=== PATIENT | female | born 1950 | race Hispanic/Latino ===

== ENCOUNTER 2020-03-31 15:44 | Outpatient (CLI) | payer OTHER, SELFPAY ==
[2020-03-31 16:05] LABS: Basophils Absolute Auto 0.1 K/mm3 (0.0-0.1); Basophils Percent Auto 1.2 % (0.2-1.2); Eosinophils Absolute Auto 0.2 K/mm3 (0-0.3); Eosinophils Percent Auto 3.8 % (0-4.4); Hematocrit 41.8 % (37.0-47.0); Hemoglobin 13.6 g/dL (12.0-15.0); Immature Granulocyte Absolute 0.02 K/mm3 (0.00-0.031); Immature Granulocyte Percent A 0.3 % (0-0.5); Lymphocytes Absolute Auto 1.56 K/mm3 (0.9-3.2); Lymphocytes Percent Auto 26.7 % (18.3-44.2); Mean Corpuscular HGB Conc 32.5 g/dl (32-36); Mean Corpuscular Hemoglobin 28.7 pg (26-34); Mean Corpuscular Volume 88.2 fl (80-100); Mean Platelet Volume 9.8 fl (7.4-10.4); Monocytes Absolute Auto 0.6 K/mm3 (0.1-0.6); Monocytes Percent Auto 9.4 % (2.6-8.5); Neutrophils Absolute Auto 3.4 K/mm3 (1.3-6.7); Neutrophils Percent Auto 58.6 % (45.5-73.1); Platelet Count Result 267 k/mm3 (150-375); Red Blood Count 4.74 M/mm3 (4.2-5.4); Red Cell Distribution Width 13.7 % (11.5-14.5); White Blood Count 5.9 K/mm3 (4.5-10.0)
[2020-03-31 16:17] LABS: Alanine Aminotransferase 33 U/L (4-35); Albumin Level 4.7 g/dL (3.5-5.1); Alkaline Phosphatase 68 U/L (38-126); Aspartate Amino Transferase 33 U/L (14-36); Bilirubin,Total 0.2 mg/dL (0.2-1.3); Blood Urea Nitrogen 20 mg/dL (7-17); Calcium 9.6 mg/dL (8.4-10.2); Carbon Dioxide 25 mmol/L (22-30); Chloride 100 mmol/L (98-107); Estimated Glomerular Filt Rate > 60; Glucose 95 mg/dL (65-105); Potassium 4.3 mmol/L (3.4-5.0); Sodium 135 mmol/L (137-145)
== END 2020-03-31 15:45 | disposition home or self-care (01) ==
PROVIDERS: PCP Family Medicine; Visit Provider Physician Assistant
DX: K92.1 Melena (principal); R10.9 Unspecified abdominal pain
CPT/HCPCS: 36415; 80053; 85025

== ENCOUNTER 2020-04-09 10:14 | Outpatient (CLI) | payer OTHER, SELFPAY ==
--- NOTE | ~2020-04-09 | MM_ITS ---
EXAMINATION: MM screening [facility] BI w mariann HISTORY: Screening mammogram TECHNIQUE: Craniocaudal and mediolateral oblique 3-D tomosynthesis images were obtained and synthetic 2-D images were generated. CAD analysis was submitted and interpreted. COMPARISON: 08/11/2019 diagnostic right digital mammogram and limited right breast ultrasound 03/14/2019 postbiopsy diagnostic right mammogram 02/04/2019 diagnostic right digital mammogram and limited right breast ultrasound 01/16/2019 bilateral digital screening mammogram BREAST PARENCHYMAL COMPOSITION: There are scattered areas of fibroglandular density. FINDINGS: 2 biopsy markers are noted on the right. History of prior benign right breast biopsy. Bilat eral occasional benign calcifications. Stable mild fibroglandular asymmetry. There is no evidence of suspicious mass, calcification, or architectural distortion to suggest malignancy in either breast. T here has been no suspicious interval change. IMPRESSION: 1. No mammographic evidence of malignancy. 2. Recommend routine screening mammography in one year. BI-RADS Category 2: Benign finding(s). Reviewed, dictated and finalized at location A.
== END 2020-04-09 10:15 | disposition home or self-care (01) ==
PROVIDERS: PCP Family Medicine; Visit Provider Family Medicine
DX: Z12.31 Encounter for screening mammogram for malignant neoplasm of breast (principal)
CPT/HCPCS: 77063; 77067

== ENCOUNTER 2021-03-09 15:16 | Outpatient (CLI) | payer OTHER, SELFPAY ==
--- NOTE | ~2021-03-09 | US_ITS ---
US pelvic complete w TV DATE: 03/09/2021 15:55 INDICATION: Right lower quadrant, pelvic pain TECHNIQUE: Real-time imaging via transabdominal and transvaginal approaches COMPARISON: None FINDINGS: The uterus measures 6.4 centers height, 2.2 cm anteroposterior and 3.6 cm transverse dimens ion. There is a calcified fibroid of the uterine fundus. Central endometrial echo measures 3 mm AP di mension, normal. Left ovary is not visualized. Right ovary 2.2 x 1.9 x 3.3 cm. Approximately 2.2 cm right ovarian cyst. IMPRESSION: 2.2 cm right ovarian cyst Reviewed, dictated and finalized at Location A. Reviewed, dictated and finalized at location A. IMPRESSION: 2.2 cm right ovarian cyst
== END 2021-03-09 15:17 | disposition home or self-care (01) ==
PROVIDERS: PCP Family Medicine; Visit Provider Family Medicine
DX: N83.201 Unspecified ovarian cyst, right side (principal); R10.31 Right lower quadrant pain
CPT/HCPCS: 76830; 76856

== ENCOUNTER → 2021-04-08 02:36 | Outpatient (CLI) | payer OTHER, SELFPAY ==
[2021-04-08 19:37] LABS: SARS-CoV-2 RNA PCR Negative
== END ==
PROVIDERS: PCP Family Medicine; Visit Provider Internal Medicine Gastroenterology
DX: Z20.822 Contact with and (suspected) exposure to COVID-19 (principal)
CPT/HCPCS: C9803; U0003; U0005

== ENCOUNTER 2021-04-11 02:05 | Day surgery (SDC) | payer OTHER, SELFPAY ==
[2021-01-28 13:27] VITALS: BMI 24.6
[2021-03-30 10:21] VITALS: BMI 24.6
[2021-04-11 06:57] VITALS: BP 162/92; PULSE 62; RESP 18; TEMP 36.2; O2SAT 99; BMI 24.7
[2021-04-11] MEDS: LACTATED RINGERS 1,000 ML 150 ML IV CONT (07:09)
--- NOTE | 2021-04-11 07:30 | WPDANESEPPF ---
Anes - Initial Pre Proc Eval Procedure: Operation Date: 04/11/21 08:00 Proposed Procedures p Esophagogastroduodenoscopy - Yohan Morocho MD Date/Time: 04/11/21 07:30 Surgeon: Yohan Morocho MD Pre Op Diagnosis: GERD Patient Data Age: 71 Gender: F Height: 4 ft 11 in Weight: 55.6 kg Last Vital Signs Temp 97.1 F L 04/11/21 06:57 Pulse 62 04/11/21 06:57 Resp 18 04/11/21 06:57 BP 162/92 H 04/11/21 06:57 Pulse Ox 99 04/11/21 06:57 Allergies Allergy/AdvReac Type Severity Reaction Status Date / Time amlodipine AdvReac Mild Swelling Verified 04/11/21 06:55 enalapril AdvReac Mild Cough Verified 04/11/21 06:55 Home Medications Medication Instructions Recorded Confirmed Type blood sugar diagnostic #50 each 10/28/19 04/11/21 Rx lancets #50 each 10/28/19 04/11/21 Rx doxycycline hyclate 20 mg tablet 20 mg PO Q12H 08/13/20 04/11/21 History levothyroxine 100 mcg tablet See Rx Instructions .ROUTE 12/20/20 04/11/21 Rx .COMPLEX #30 tablet metronidazole 0.75 % topical cream 1 applic TOPICAL QHS #45 g 02/03/21 04/11/21 Rx valsartan 40 mg tablet 40 mg PO DAILY #30 tablet 03/04/21 04/11/21 Rx latanoprost 1 drp EACH EYE HS 03/30/21 04/11/21 History Patient hx anesthesia problems: none Family hx anesthesia problems: none PMFSH Past Medical History Medical History (Updated 04/11/21 @ 07:25 by Nick Heller MD) Acquired hypothyroidism Essential (primary) hypertension Gastroesophageal reflux disease Surgical History Surgical History (Updated 08/13/20 @ 15:10 by Yohan Morocho MD) History of cholecystectomy Family History Family History Sibling Family history of malignant neoplasm of stomach Social History Social History (Updated 03/02/21 @ 14:57 by Lisbet Valentine MA) Smoking status: Never smoker Tobacco type: cigarettes Second hand tobacco smoke exposure: No Smoking end date: 11/26/83 Alcohol intake: never Substance use: never Substance use type: does not use Living arrangements: with family Gender identity (if verbalized by the patient): Female Spiritual care concerns: No Anes - Eval Final PreProcedure Day of Procedure 04/11/21 07:30 Patient weight: normal Heart: regular rate and rhythm Lungs: clear to auscultation Airway: Mallampati scale class II Neurological: alert and oriented Last oral intake: >/= 8 hours ASA classification: II Emergent: no Anesthetic plan: proceed Anesthesia type and monitoring: general GIVS and standard monitoring Informed Consent: The patient's anesthetic plan and its attendant risks and benefits were discussed with the patient/family/POA. Questions were solicited and answers provided to the satisfaction of the patient/family/POA.
--- NOTE | 2021-04-11 08:02 | PM.HPGS ---
History of Present Illness History of Present Illness Consent: Risks, benefits, and alternatives have been discussed and questions answered. Patient agrees to proceed with procedure. Chief complaint: GERD Narrative: Geneva Vega is a 71 year old female with intermittent reflux, not taking ppi anymore Review of Systems Constitutional: Constitutional: Denies headache(s) and Denies weakness Eyes: Eyes: Denies blurry vision ENT: Reports Normal hearing present, Denies headache(s) and Denies neck pain Cardiovascular: Cardiovascular: Denies chest pain and Denies dyspnea Respiratory: Respiratory: Denies dyspnea Gastrointestinal: Gastrointestinal: Reports no additional gastrointestinal complaints Genitourinary: Genitourinary: Denies dysuria Musculoskeletal: Musculoskeletal: Denies neck pain Integumentary/Breasts: Skin/Breast: Denies dry skin Neurologic: Reports Normal hearing present, Denies headache(s) and Denies weakness Psychiatric: Psychiatric: Denies anxiety Endocrine: Endocrine: Denies change in body appearance Hematologic/Lymphatic: Hematologic/Lymphatic: Denies easy bleeding Allergic/Immunologic: Allergic/Immunologic: Denies urticaria PMFSH Past Medical History Medical History (Updated 04/11/21 @ 07:25 by Nick Heller MD) Acquired hypothyroidism Essential (primary) hypertension Gastroesophageal reflux disease Surgical History Surgical History (Updated 08/13/20 @ 15:10 by Yohan Morocho MD) History of cholecystectomy Family History Family History Sibling Family history of malignant neoplasm of stomach Social History Social History (Updated 03/02/21 @ 14:57 by Lisbet Valentine MA) Smoking status: Never smoker Tobacco type: cigarettes Second hand tobacco smoke exposure: No Smoking end date: 11/26/83 Alcohol intake: never Substance use: never Substance use type: does not use Living arrangements: with family Gender identity (if verbalized by the patient): Female Spiritual care concerns: No Meds Home Medications and Allergies Home Medications Medication Instructions Recorded Confirmed Type blood sugar diagnostic #50 each 10/28/19 04/11/21 Rx lancets #50 each 10/28/19 04/11/21 Rx doxycycline hyclate 20 mg tablet 20 mg PO Q12H 08/13/20 04/11/21 History levothyroxine 100 mcg tablet See Rx Instructions .ROUTE 12/20/20 04/11/21 Rx .COMPLEX #30 tablet metronidazole 0.75 % topical cream 1 applic TOPICAL QHS #45 g 02/03/21 04/11/21 Rx valsartan 40 mg tablet 40 mg PO DAILY #30 tablet 03/04/21 04/11/21 Rx latanoprost 1 drp EACH EYE HS 03/30/21 04/11/21 History Allergies Allergy/AdvReac Type Severity Reaction Status Date / Time amlodipine AdvReac Mild Swelling Verified 04/11/21 06:55 enalapril AdvReac Mild Cough Verified 04/11/21 06:55 Vital Signs Vital Signs - 24 hr 04/11/21 06:57 Temperature 97.1 F L Pulse Rate 62 Respiratory Rate 18 Blood Pressure 162/92 H Pulse Oximetry 99 Exam Const: General: comfortable and no acute distress HENMT: General nose exam: Normal nares present Eyes: General: appearance normal, both eyes and all related structures Neck: Neck: no JVD Resp: Auscultation: clear to auscultation bilaterally Cardio: Rate: regular rate Rhythm: regular rhythm GI: Inspection: non-distended GI Palp: Yes Soft to palpation Skin: General skin exam: normal color Neuro: General: gait normal Speech: normal speech Extrem: General: normal to inspection Psych: Mental Status: mental status grossly normal Assessment and Plan Assessment and plan (1) Gastroesophageal reflux disease: Code(s): K21.9 - Gastro-esophageal reflux disease without esophagitis Status: Acute Assessment and Plan: egd with bx
[2021-04-11 08:19] VITALS: BP 116/60; PULSE 58; RESP 18; O2SAT 98
[2021-04-11 08:29] VITALS: BP 123/69; PULSE 62; RESP 18; O2SAT 98
[2021-04-11 08:39] VITALS: BP 121/69; PULSE 63; RESP 18; O2SAT 98
== END 2021-04-11 09:06 | disposition home or self-care (01) ==
PROVIDERS: PCP Family Medicine; Visit Provider Internal Medicine Gastroenterology
PROC: 0DJ08ZZ Inspection of Upper Intestinal Tract, Via Natural or Artificial Opening Endoscopic (ICD-10-PCS; CPT 43235; principal; 2021-04-11 08:00)
DX: K21.00 Gastro-esophageal reflux disease with esophagitis, without bleeding (principal); K44.9 Diaphragmatic hernia without obstruction or gangrene; K29.70 Gastritis, unspecified, without bleeding; E03.9 Hypothyroidism, unspecified; I10 Essential (primary) hypertension; Z87.891 Personal history of nicotine dependence
CPT/HCPCS: 43239; 88305; J2704; J7120

== ENCOUNTER 2021-04-14 15:26 | Outpatient (CLI) | payer OTHER, SELFPAY ==
--- NOTE | ~2021-04-14 | MM_ITS ---
EXAMINATION: MM screening [facility] BI w mariann HISTORY: Screening TECHNIQUE: Craniocaudal and mediolateral oblique 3-D tomosynthesis images were obtained and synthetic 2-D images were generated. CAD analysis was submitted and interpreted. COMPARISON: Comparison to multiple prior studies sequentially, with oldest reviewed study dated 01/16. BREAST PARENCHYMAL COMPOSITION: There are scattered areas of fibroglandular density. FINDINGS: There is no evidence of suspicious mass, calcification, or architectural distortion to sugg est malignancy in either breast. There has been no suspicious interval change. IMPRESSION: 1. No mammographic evidence of malignancy. 2. Recommend routine screening mammography in one year. BI-RADS Category 1: Negative Reviewed, dictated and finalized at location A.
== END 2021-04-14 15:27 | disposition home or self-care (01) ==
PROVIDERS: PCP Family Medicine; Visit Provider Family Medicine
DX: Z12.31 Encounter for screening mammogram for malignant neoplasm of breast (principal)
CPT/HCPCS: 77063; 77067

== ENCOUNTER 2022-02-28 15:57 | Outpatient (CLI) | payer OTHER, SELFPAY ==
--- NOTE | ~2022-02-28 | XR_ITS ---
EXAMINATION: XR chest 2V EXAM DATE: 02/28/2022 16:28 INDICATION: R07.9 - Chest pain, unspecified TECHNIQUE: Frontal and lateral projections of the chest obtained and reviewed. There is no prior cassius dy for comparison. FINDINGS: The lungs are clear. There are no pleural effusions. The cardiomediastinal silhouette is within normal limits. There is no pneumothorax suspected. There are bony degenerative changes. Mode rate lumbar scoliosis. There are cholecystectomy clips. IMPRESSION: No acute cardiopulmonary findings. Reviewed, dictated and finalized at location A.
--- NOTE | ~2022-02-28 | XR_ITS ---
EXAMINATION: XR knee LT 2V DATE: 02/28/2022 16:28 INDICATION: Left knee pain. TECHNIQUE: 2 views of left knee standing were obtained. COMPARISON: None. FINDINGS: Bone alignment is normal. No fracture. There is severe osteoarthritis of medial compartment and mild osteoarthritis of lateral and patellofemoral compartments. No knee joint effusion. IMPRESSION: 1. Severe left knee osteoarthritis. Reviewed, dictated and finalized at location A.
== END 2022-02-28 15:58 | disposition home or self-care (01) ==
LOC: ANHIMG 16:01
PROVIDERS: PCP Family Medicine; Visit Provider Family Medicine
DX: R07.9 Chest pain, unspecified (principal); M25.562 Pain in left knee; M17.12 Unilateral primary osteoarthritis, left knee
CPT/HCPCS: 71046; 73560

== ENCOUNTER 2022-04-27 09:30 | Outpatient (CLI) | payer OTHER, SELFPAY ==
--- NOTE | ~2022-04-27 | MM_ITS ---
EXAMINATION: MM screening [facility] BI w mariann HISTORY: Screening mammogram TECHNIQUE: Craniocaudal and mediolateral oblique 3-D tomosynthesis images were obtained and synthetic 2-D images were generated. CAD analysis was submitted and interpreted. COMPARISON: No prior mammogram is available for comparison at this institution. BREAST PARENCHYMAL COMPOSITION: There are scattered areas of fibroglandular density. FINDINGS: There are 2 biopsy markers on the right; history of 2 prior benign right breast biopsies. There is stable mild fibroglandular asymmetry. Occasional bilateral benign calcifications. There is n o evidence of suspicious mass, calcification, or architectural distortion to suggest malignancy in ei ther breast. There has been no suspicious interval change. IMPRESSION: 1. No mammographic evidence of malignancy. 2. Recommend routine screening mammography in one year. BI-RADS Category 2: Benign finding(s). Reviewed, dictated and finalized at location A.
== END 2022-04-27 09:31 | disposition home or self-care (01) ==
LOC: ANHIMG 09:31
PROVIDERS: PCP Family Medicine; Visit Provider Family Medicine
DX: Z12.31 Encounter for screening mammogram for malignant neoplasm of breast (principal)
CPT/HCPCS: 77063; 77067

== ENCOUNTER 2022-10-26 14:00 | Outpatient (CLI) | payer OTHER, SELFPAY ==
--- NOTE | ~2022-10-26 | XR_ITS ---
XR hand BI arthritis min 3V 10/26/2022 14:27 Indication: Arthritis Procedure: 4 views of each hand Comparison: No prior studies for comparison. Findings: Right: There is moderate osteoarthritis of the first MCP joint. There is moderate osteoarthritis of t he first interphalangeal, second, third and fourth distal interphalangeal and second and third proxim al interphalangeal joints. There is mild osteoarthritis of the fifth interphalangeal joints. No erosi ve changes. No acute fracture or traumatic malalignment. There is osteoarthritis of the triscaphe nazia nt. Left: There is mild-moderate polyarticular osteoarthritis involving the interphalangeal joints. There is an exophytic expansile circumscribed mixed lytic and sclerotic lesion of the fifth metacarpal nec k. Impression: 1: Moderate bilateral polyarticular osteoarthritis. 2: Exophytic expansile circumscribed mixed lytic and sclerotic lesion of the fifth metacarpal neck, of uncertain clinical significance. Recommend comparison to any previous outside examinations if avai lable.. Reviewed, dictated and finalized at location A. [employer] DIRECT[employer] Impression: 1: Moderate bilateral polyarticular osteoarthritis. 2: Exophytic expansile circumscribed mixed lytic and sclerotic lesion of the f ifth metacarpal neck, of uncertain clinical significance. Recommend comparison to any previous outside examinations if available..
== END 2022-10-26 14:01 | disposition home or self-care (01) ==
PROVIDERS: PCP Family Medicine; Visit Provider Family Medicine
DX: M79.642 Pain in left hand (principal); M79.641 Pain in right hand; M19.042 Primary osteoarthritis, left hand; M19.041 Primary osteoarthritis, right hand; M89.9 Disorder of bone, unspecified
CPT/HCPCS: 73130

== ENCOUNTER 2022-11-10 16:05 | Outpatient (CLI) | payer OTHER, MEDICARE, SELFPAY ==
--- NOTE | ~2022-11-10 | CT_ITS ---
EXAMINATION: CT hand LT wo con DATE: 11/10/2022 16:28 INDICATION: Exophytic and sclerotic lesion of the left fifth metacarpal TECHNIQUE: High resolution computed tomography (CT) of the left hand was performed without intravenou s contrast. Additional sagittal and coronal reconstructions were performed. Automated exposure contro l and iterative reconstruction technique were employed. The dose-length product was 450.96 mGy-cm. COMPARISON: None FINDINGS: Bone alignment is normal. No fracture. There is severe erosive osteoarthritis with central gullwing e rosions at the base of the distal phalanges at the second, third and fifth distal interphalangeal nazia nts. Moderate osteoarthritis at the remaining interphalangeal joints and at the second and third meta carpophalangeal joints where there are mild subarticular cystic changes. Severe osteoarthritis at the triscaphe and first carpal metacarpal joints. There is a dumbbell shaped mixed lytic and sclerotic lesion at the radial side of the of the distal n tess of the fifth metacarpal . Is comprised of approximately 6 mm diameter intraosseous and extraosseo us components, both with internal ring and arc-like calcification consistent with chondroid matrix. T here is a peripheral corticated margin to the extraosseous component which appears diminutive with th e interosseous component 3 small region of medullary continuity. The medullary continuity an intraoss eous component would argue against a Ce's lesion/bizarre parosteal proliferation (BPOP). The intero sseous component would argue against an osteochondroma. Peripheral cortication and absence of aggress jimy appearing osteolysis, periosteal reaction or soft tissue mass would argue against a malignant les ion. Appearance would be most consistent with enchondroma protuberans. IMPRESSION: 1. Mixed lytic and sclerotic lesion originating at the neck of the fifth metacarpal with both intrame dullary and extra osseous components and suggestion of internal chondroid matrix most consistent with enchondroma protuberans. 2. Severe polyarticular osteoarthritis with erosive component at a few of the distal interphalangeal joints. Reviewed, dictated and finalized at location A. STITCHER IMPRESSION: 1. Mixed lytic and sclerotic lesion originating at the neck of the fifth metaca rpal with both intramedullary and extra osseous components and suggestion of in ternal chondroid matrix most consistent with enchondroma protuberans. 2. Severe polyarticular osteoarthritis with erosive component at a few of the d istal interphalangeal joints.
== END 2022-11-10 16:06 | disposition home or self-care (01) ==
PROVIDERS: PCP Family Medicine; Visit Provider Physician Assistant
DX: R93.6 Abnormal findings on diagnostic imaging of limbs (principal); M89.9 Disorder of bone, unspecified; M19.042 Primary osteoarthritis, left hand
CPT/HCPCS: 73200

== ENCOUNTER 2023-03-02 11:23 | Outpatient (CLI) | payer MEDICARE, MEDICAID, SELFPAY ==
--- NOTE | ~2023-03-02 | MMUS_ITS ---
EXAMINATION: MM diagnostic [facility] BI w mariann, US breast BI complete HISTORY: Bilateral breast pain TECHNIQUE: Additional 3-D tomosynthesis images of the breasts were performed and synthetic 2-D images were generated. CAD analysis was submitted and interpreted. High resolution complete bilateral breas t ultrasound was performed. COMPARISON: Comparison to multiple prior studies sequentially, with oldest reviewed study dated 04/09. BREAST PARENCHYMAL COMPOSITION: Breast composed of scattered areas of fibroglandular density FINDINGS: MAMMOGRAPHIC FINDINGS: The breasts are stable. No suspicious masses, calcifications or architectural distortion in either br east to suggest malignancy. ULTRASOUND: Complete bilateral US of all 4 quadrants of the breasts and retroareolar region was reviewed. Normal heterogeneous echotexture without focal solid or cystic mass in either breast. IMPRESSION: 1. No evidence for malignancy in either breast. 2. Routine yearly screening mammogram and regular clinical breast examination are recommended. BI-RADS CATEGORY 1 - NEGATIVE Reviewed, dictated and finalized at location A. IMPRESSION: 1. No evidence for malignancy in either breast. 2. Routine yearly screening mammogram and regular clinical breast examination a re recommended. BI-RADS CATEGORY 1 - NEGATIVE
== END 2023-03-02 11:24 | disposition home or self-care (01) ==
LOC: ANHIMG 11:25
PROVIDERS: PCP Family Medicine; Visit Provider Family Medicine
DX: N64.4 Mastodynia (principal)
CPT/HCPCS: 76641; 77062; 77066; G0279

== ENCOUNTER 2023-09-04 10:27 | Outpatient (CLI) | payer MEDICARE, SELFPAY ==
--- NOTE | ~2023-09-04 | XR_ITS ---
AP view of the pelvis and AP and lateral views of the right hip Clinical history: Pain Findings: No acute fracture or dislocation is seen. Scoliotic change of the lumbar spine is partially imaged. Bilateral hip joints are intact. There is probable degenerative change of the left SI joint. Calcified fibroids are present. Impression: Unremarkable hip joints. Left SI joint degenerative change. Calcified fibroids. Reviewed, dictated and finalized at location . Impression: Unremarkable hip joints. Left SI joint degenerative change. Calcified fibroids.
== END 2023-09-04 10:28 | disposition home or self-care (01) ==
PROVIDERS: PCP Family Medicine; Visit Provider Family Medicine
DX: M25.551 Pain in right hip (principal); D25.9 Leiomyoma of uterus, unspecified; M53.3 Sacrococcygeal disorders, not elsewhere classified
CPT/HCPCS: 73502

== ENCOUNTER 2024-04-23 12:32 | Outpatient (CLI) | payer MEDICARE, MEDICAID, SELFPAY ==
--- NOTE | ~2024-04-23 | MM_ITS ---
EXAMINATION: MM diagnostic [facility] BI w mariann HISTORY: Breast pain TECHNIQUE: Additional 3-D tomosynthesis images of the breasts were performed and synthetic 2-D images were generated. CAD analysis was submitted and interpreted. COMPARISON: Comparison to multiple prior studies sequentially, with oldest reviewed study dated 07/2019. BREAST PARENCHYMAL COMPOSITION: Not dense: There are scattered areas of fibroglandular density. FINDINGS: The breasts are stable. No suspicious masses, calcifications or architectural distortion in either breast to suggest malignancy. IMPRESSION: 1. No mammographic evidence for malignancy in either breast. 2. Routine yearly screening mammogram and regular clinical breast examination are recommended. BI-RADS Category 1: Negative Reviewed, dictated and finalized at location B. IMPRESSION: 1. No mammographic evidence for malignancy in either breast. 2. Routine yearly screening mammogram and regular clinical breast examination a re recommended. BI-RADS Category 1: Negative
== END 2024-04-23 12:33 | disposition home or self-care (01) ==
LOC: ANHIMG 12:35
PROVIDERS: PCP Family Medicine; Visit Provider Physician Assistant Medical
DX: N64.4 Mastodynia (principal)
CPT/HCPCS: 77062; 77066; G0279

== ENCOUNTER 2024-09-12 13:25 | Outpatient (CLI) | payer MEDICARE, MEDICAID, SELFPAY ==
--- NOTE | ~2024-09-12 | CT_ITS ---
EXAMINATION: CT abdomen pelvis wo con DATE: 09/12/2024 13:42 INDICATION: Abdomen pain TECHNIQUE: Computed tomography (CT) of the abdomen and pelvis was performed without intravenous contr ast. The dose-length product was 265.88 mGy-cm. Automated exposure control and iterative reconstructi on technique were employed. COMPARISON: None. FINDINGS: Lung bases are unremarkable. Heart size normal. No significant pleural or pericardial effus ion. Status post cholecystectomy. The liver, spleen, pancreas, adrenal glands and left kidney are unr emarkable. There is a small exophytic right renal mass measuring 12 mm, consistent with a cyst. Statu s post cholecystectomy. The liver, spleen, pancreas, adrenal glands and left kidney are unremarkable. Bowel gas pattern nonobstructive. Colonic diverticulosis without evidence for diverticulitis. There are coarse calcifications in the pelvis, likely a uterine fibroid changes. There is atherosclerosis o f the aorta without aneurysm. Severe lower thoracic and lumbar spondylosis with scoliosis. IMPRESSION: 1. No acute abdominal abnormality. Reviewed, dictated and finalized at location B.
== END 2024-09-12 13:26 | disposition home or self-care (01) ==
LOC: ANHIMG 13:27
PROVIDERS: PCP Family Medicine; Visit Provider Family Medicine
DX: R10.9 Unspecified abdominal pain (principal)
CPT/HCPCS: 74176

== ENCOUNTER 2024-10-27 00:13 | Day surgery (SDC) | payer MEDICARE, MEDICAID, SELFPAY ==
[2024-10-07 10:35] VITALS: BMI 24.0
[2024-10-27 08:32] VITALS: BP 136/76; PULSE 67; RESP 18; TEMP 36.3; O2SAT 100
--- NOTE | 2024-10-27 08:41 | WPDANESEPPF ---
Anes - Initial Pre Proc Eval Procedure: Operation Date: 10/27/24 10:00 Proposed Procedures p Esophagogastroduodenoscopy - Santiago Correa MD Date/Time: 10/27/24 08:41 Surgeon: Santiago Correa MD Pre Op Diagnosis: GERD Patient Data Age: 74 Gender: F Height: 1.5 m Weight: 52.1 kg Last Vital Signs Temp 36.3 C L 10/27/24 08:32 Pulse 67 10/27/24 08:32 Resp 18 10/27/24 08:32 BP 136/76 10/27/24 08:32 Pulse Ox 100 10/27/24 08:32 O2 Del Method Room Air 10/27/24 08:32 Allergies Allergy/AdvReac Type Severity Reaction Status Date / Time enalapril AdvReac Mild Cough Verified 10/27/24 08:29 Home Medications Medication Instructions Recorded Confirmed Type blood sugar diagnostic (OneTouch #50 ea 10/28/19 10/07/24 Rx Ultra Blue Test Strip) lancets (Lancets,Ultra Thin) #50 ea 10/28/19 10/07/24 Rx latanoprost 0.005 % eye drops 1 drp EACH EYE HS 03/30/21 10/07/24 History diclofenac sodium 1 % topical gel 4 g topical QID PRN pain (scale 03/20/22 10/07/24 Rx score 7-10) #100 grams levothyroxine 100 mcg tablet See Rx Instructions .Route 05/19/24 10/07/24 Rx .COMPLEX #30 tabs losartan 100 1 tablet PO DAILY #90 tabs 06/23/24 10/07/24 Rx mg-hydrochlorothiazide 12.5 mg tablet amlodipine 5 mg tablet 5 mg PO DAILY 10/07/24 10/07/24 History famotidine 40 mg tablet (Pepcid) 40 mg PO DAILY 10/07/24 10/07/24 History magnesium 400 mg PO DAILY 10/27/24 10/27/24 History Patient hx anesthesia problems: none Family hx anesthesia problems: none Results Review: All pre-operative results and documents have been reviewed as part of the pre-operative evaluation. [facility] Past Medical History Medical History Acquired hypothyroidism Essential (primary) hypertension Gastroesophageal reflux disease Hearing loss Hypertension IFG (impaired fasting glucose) Insomnia Left knee DJD Right knee DJD Surgical History Surgical History History of cholecystectomy Family History Family History Sibling Family history of malignant neoplasm of stomach Social History Social History Smoking status: Former smoker Tobacco type: cigarettes Second hand tobacco smoke exposure: No Smoking end date: 11/26/83 Alcohol intake: never Substance use: never Substance use type: does not use Living arrangements: alone Occupation/Education: occupation Gender identity (if verbalized by the patient): Female Spiritual care concerns: No Anes - Eval Final PreProcedure Day of Procedure 10/27/24 08:41 Patient weight: normal Heart: regular rate and rhythm Lungs: clear to auscultation Airway: Mallampati scale class II Neurological: alert and oriented Last oral intake: >/= 8 hours ASA classification: III Emergent: no Anesthetic plan: proceed Anesthesia type and monitoring: general GIVS and standard monitoring Results Review: All pre-operative results and documents have been reviewed as part of the pre-operative evaluation. Informed Consent: The patient's anesthetic plan and its attendant risks and benefits were discussed with the patient/family/POA. Questions were solicited and answers provided to the satisfaction of the patient/family/POA.
[2024-10-27] MEDS: LACTATED RINGERS 1,000 ML 150 ML IV CONT (08:49)
--- NOTE | 2024-10-27 08:59 | PM.IMHP ---
H&P: HPI History of Present Illness Date/Time: 10/27/24 08:59 Chief Complaint: Heartburn and epigastric pain. Narrative: The patient has been suffering from heartburn which is currently controlled with PPIs, and is also complaining of intermittent epigastric pain. She has been evaluated by her primary care physician for intermittent diarrhea. Her last EGD was in 2020 showing nonspecific gastritis. Review of Systems Review of Systems: All systems reviewed & are unremarkable except as noted in HPI and below PMFSH Past Medical History Medical History Acquired hypothyroidism Essential (primary) hypertension Gastroesophageal reflux disease Hearing loss Hypertension IFG (impaired fasting glucose) Insomnia Left knee DJD Right knee DJD Surgical History Surgical History History of cholecystectomy Family History Family History Sibling Family history of malignant neoplasm of stomach Social History Social History Smoking status: Former smoker Tobacco type: cigarettes Second hand tobacco smoke exposure: No Smoking end date: 11/26/83 Alcohol intake: never Substance use: never Substance use type: does not use Living arrangements: alone Occupation/Education: occupation Gender identity (if verbalized by the patient): Female Spiritual care concerns: No Meds Home Medications and Allergies Home Medications Medication Instructions Recorded Confirmed Type blood sugar diagnostic (OneTouch #50 ea 10/28/19 10/07/24 Rx Ultra Blue Test Strip) lancets (Lancets,Ultra Thin) #50 ea 10/28/19 10/07/24 Rx latanoprost 0.005 % eye drops 1 drp EACH EYE HS 03/30/21 10/07/24 History diclofenac sodium 1 % topical gel 4 g topical QID PRN pain (scale 03/20/22 10/07/24 Rx score 7-10) #100 grams levothyroxine 100 mcg tablet See Rx Instructions .Route 05/19/24 10/07/24 Rx .COMPLEX #30 tabs losartan 100 1 tablet PO DAILY #90 tabs 06/23/24 10/07/24 Rx mg-hydrochlorothiazide 12.5 mg tablet amlodipine 5 mg tablet 5 mg PO DAILY 10/07/24 10/07/24 History famotidine 40 mg tablet (Pepcid) 40 mg PO DAILY 10/07/24 10/07/24 History magnesium 400 mg PO DAILY 10/27/24 10/27/24 History Allergies Allergy/AdvReac Type Severity Reaction Status Date / Time enalapril AdvReac Mild Cough Verified 10/27/24 08:29 Vital Signs Vital Signs - 24 hr 10/27/24 08:32 Temperature 97.3 F L Pulse Rate 67 Respiratory Rate 18 Blood Pressure 136/76 Pulse Oximetry 100 Oxygen Delivery Room Air Exam Const: General: cooperative and healthy appearing Resp: Effort & Inspection: normal respiratory effort and able to speak in complete sentences Auscultation: clear to auscultation bilaterally Cardio: Rate: regular rate Rhythm: regular rhythm GI: Inspection: normal to inspection GI Palp: No No hepatosplenomegaly present Auscultation: normal bowel sounds Rectal Exam: deferred Skin: General skin exam: normal color Psych: Appearance: grossly normal Mental Status: mental status grossly normal Assessment and Plan Assessment and plan (1) Gastroesophageal reflux disease: Code(s): K21.9 - Gastro-esophageal reflux disease without esophagitis Status: Acute Plan The patient is deemed a good candidate for the procedure. Consent signed. Will proceed.
[2024-10-27 09:24] VITALS: BP 108/67; PULSE 67; RESP 16; O2SAT 99
[2024-10-27 09:34] VITALS: BP 109/64; PULSE 64; RESP 12; O2SAT 99
[2024-10-27 09:44] VITALS: BP 132/69; PULSE 62; RESP 16; O2SAT 99
== END 2024-10-27 09:55 | disposition home or self-care (01) ==
PROVIDERS: PCP Family Medicine; Referring Provider Physician Assistant; Visit Provider Internal Medicine Gastroenterology
PROC: 0DJ08ZZ Inspection of Upper Intestinal Tract, Via Natural or Artificial Opening Endoscopic (ICD-10-PCS; CPT 43235; principal; 2024-10-27 10:00)
DX: K29.30 Chronic superficial gastritis without bleeding (principal); K21.9 Gastro-esophageal reflux disease without esophagitis; I10 Essential (primary) hypertension; E03.9 Hypothyroidism, unspecified; Z87.891 Personal history of nicotine dependence
CPT/HCPCS: 43239; 88305; J2704; J7120

== ENCOUNTER 2025-04-24 10:09 | Outpatient (CLI) | payer MEDICARE, MEDICAID, SELFPAY ==
--- NOTE | ~2025-04-24 | MM_ITS ---
EXAMINATION: MM screening vinay BI w mariann HISTORY: Screening TECHNIQUE: Craniocaudal and mediolateral oblique 3-D tomosynthesis images were obtained and synthetic 2-D images were generated. CAD analysis was submitted and interpreted. COMPARISON: Comparison to multiple prior studies sequentially, with oldest reviewed study dated 04/14. BREAST PARENCHYMAL COMPOSITION: Not dense: There are scattered areas of fibroglandular density. FINDINGS: There is no evidence of suspicious mass, calcification, or architectural distortion to sugg est malignancy in either breast. There has been no suspicious interval change. IMPRESSION: 1. No mammographic evidence of malignancy. 2. Recommend routine screening mammography in one year. BI-RADS Category 1: Negative Reviewed, dictated and finalized at location A.
--- OUTSIDE RECORDS SUMMARY | 2025-04-24 10:29 | XMS_ITS | Clinical Summary ---
Author Organization [facility] Address [address] [place] [address] Care Team Providers Care G[employer] Publisher [employer] Name Role Phone Jordon Herbert MD Primary Care Provider Allergies No known active allergies Medications enalapril (VASOTEC) 20 mg tablet 02/04/2019 Active levothyroxine 100 mcg tablet 02/04/2019 Acti ve latanoprost (XALATAN) 0.005 % solution 01/11/2019 Active naproxen (NAPROSYN) 500 mg tablet 07/08/2019 Active levothyroxine 88 mcg tablet TAKE 1 TABLET BY MOUTH ONCE DAILY 5 07/14/2019 Active Active Problems Problem Noted Date Diagnosed Date Fibrocystic change of breast, right 03/11/2019 Fibroadenoma, right 03/11/2019 Resolved Problems Problem Noted Date Diagnosed Date Resolved Date Abnormal mammogram of right breast 02/27/2019 03/11/2019 Abnormal ultrasound of breast 02/27/2019 03/11/2019 Sign and symptom in breast 02/27/2019 0 03/11/2019 Family History Medical History Relation Name Comments Leukemia Brother No Known Problems Father No Known Problems Mother Stomach Cancer Sister Relation Name Status Comments Brother Alive Father Mother Sister Social History Tobacco Use Types Packs/Day Years Used Date Smoking Tobacco: Former Cigarettes Q uit: 11/29/1990 Smokeless Tobacco: Never Alcohol Use Standard Drinks/Week Comments Yes 0 (1 standard drink = 0.6 oz pur e alcohol) occassional Comments No Sex and Gender Information Value Date Recorded Sex Assigned at Not on file Legal Sex Female 11:31 AM CDT Gender Identity Not on file Sexual Orientation Not on file Last Filed Vital Signs Vital Sign Reading Time Taken Comments Blood Pressure 124/90 08/20/2019 3:51 PM CDT Pulse 73 08/20/2019 3:51 PM CDT Temperature 36.7 C (98.1 F) 08/20/2019 3:51 PM CDT Respiratory Rate - - Oxygen Saturation 96% 03/11/2019 10:02 AM CDT Inhaled Oxygen Concentration - - Weight 55.8 kg (123 lb) 08/20/2019 3:51 PM CDT Height 144.8 cm (4' 9) 08/20/2019 3:51 PM CDT Body Mass Index 26.62 08/20/2019 3:51 PM CDT Plan of Treatment Health Maintenance Due Date Last Done Comments DTAP/TDAP/TD VACCINES (1 - Tdap) 02/12/1968 PNEUMOCOCCAL VACCINE 50+ YEARS (1 of 1 - PCV) 02/11/19 99 ZOSTER VACCINE (1 of 2) 1999 OSTEOPOROSIS SCREENING 2014 RSV VACCINE (60+ or ) (1 - 1-dose 75+ series) 02/12/2024 INFLUENZA VACCINE (#1) 2024 Insurance [employer] PPO Care Teams G[employer] Publisher Business Relationship Specialty Start Date End Date Jordon Herbert MD [address] [facility] [[email or web address]] [address] [place] [address] PCP - General Family Practice 02/05/19
== END 2025-04-24 10:10 | disposition home or self-care (01) ==
LOC: ANHIMG 10:15
PROVIDERS: PCP Family Medicine; Visit Provider Family Medicine
DX: Z12.31 Encounter for screening mammogram for malignant neoplasm of breast (principal)
CPT/HCPCS: 77063; 77067

== ENCOUNTER 2025-07-14 08:42 | Outpatient (CLI) | payer MEDICARE, MEDICAID, SELFPAY ==
--- OUTSIDE RECORDS SUMMARY | 2025-07-14 09:01 | XMS_ITS | Clinical Summary ---
Author Organization [facility] Address [address] [place] [address] Care Team Providers Care Printing Pressman Name Role Phone Jordon Herbert MD Primary [...] 1-dose 75+ series) 02/12/2024 INFLUENZA VACCINE (#1) 2025 Insurance [employer] PPO Care Teams Printing Pressman Relationship Specialty Start Date End Date Jordon Herbert MD [address] [facility] [address] [place] [address] PCP - General Family Practice 02/05/19
== END 2025-07-14 08:43 | disposition home or self-care (01) ==
LOC: ANHAUDIO 08:42
PROVIDERS: PCP Family Medicine; Visit Provider Otolaryngology
DX: H90.3 Sensorineural hearing loss, bilateral (principal)
CPT/HCPCS: 92557; 92567